=== PATIENT | female | born 2005 | race Caucasian/White ===

== ENCOUNTER 2024-12-10 11:28 | Emergency (ER) | payer OTHER, BC ==
[~2024-12-10] VITALS: Ht 170.1 cm; Wt 74.8 kg
== END 2024-12-10 13:23 | disposition home or self-care (01) ==
LOC: ED 11:28
DX: S00.83XA Contusion of other part of head, initial encounter (principal); W22.02XA Walked into lamppost, initial encounter; Y93.89 Activity, other specified; Y92.89 Other specified places as the place of occurrence of the external cause; Y99.8 Other external cause status